=== PATIENT | female | born 1995 | race Caucasian/White ===

== ENCOUNTER 2017-03-13 23:10 | Observation (INO) | payer SELFPAY ==
[~2017-03-13] VITALS: Ht 157.5 cm; Wt 65.3 kg
[~2017-03-13 23:10] MED LIST: IBUP-2071 PO; PREN1TAB26 PO
[2017-03-14 00:59] VITALS: BP 131/68
== END 2017-03-14 00:35 | disposition home or self-care (01) ==
LOC: 4S 23:12 → INTOOBSV 23:12
PROVIDERS: ADMIT Obstetrics & Gynecology; ATTEND Obstetrics & Gynecology
DX: O26.893 Other specified pregnancy related conditions, third trimester (principal); R10.9 Unspecified abdominal pain; N89.8 Other specified noninflammatory disorders of vagina; O62.9 Abnormality of forces of labor, unspecified; Z3A.37 37 weeks gestation of pregnancy
CPT/HCPCS: 59025; G0378 ×2

== ENCOUNTER 2017-03-23 22:25 | Inpatient (IN) | payer SELFPAY ==
[~2017-03-23] VITALS: Ht 154.9 cm; Wt 64.9 kg
[~2017-03-23 22:25] MED LIST changes: -IBUP-2071 PO
[2017-03-23 22:30] VITALS: BP 123/69
[2017-03-24 00:30] LABS: BASOPHILS % (AUTO) 0.4 % (0.0-2.0); EOSINOPHILS % (AUTO) 1.1 % (1.0-6.0); HEMATOCRIT 26.1 % (36-46); HEMOGLOBIN 8.2 g/dL (12.0-16.0); LYMPHOCYTES # (AUTO) 3.7 K/uL (1.0-4.8); LYMPHOCYTES % (AUTO) 24.7 % (22.0-44.0); MEAN CORPUSCULAR HEMOGLOBIN 20.8 pg (26.0-34.0); MEAN CORPUSCULAR HGB CONC 31.4 G/dL (31.0-37.0); MEAN CORPUSCULAR VOLUME 66 fL (80-100); MONOCYTES # (AUTO) 1.1 K/uL (0.1-1.0); MONOCYTES % (AUTO) 7.2 % (2.0-9.0); NEUTROPHILS % (AUTO) 66.6 % (40.0-70.0); RED BLOOD CELL COUNT(AUTO) 3.93 MIL/uL (4.00-5.20); RED CELL DISTRIBUTION WIDTH 19.1 % (11.5-14.5); WHITE BLOOD COUNT (AUTO) 15.1 K/uL (4.5-11.0)
[2017-03-24] MEDS: RINGERS SOLUTION,LACTATED 1,000 ML IV SCH ×4 (00:54→16:28)
[2017-03-24 00:57] LABS: RBC MORPHOLOGY COMMENT ABNORMAL RBC MORPH
[2017-03-24 01:15] LABS: RUBELLA SCREEN (IGG) IMMUNE (IMMUNE)
[2017-03-24] MEDS ORDERED: METOCLOPRAMIDE HCL 5 MG/ML 2 ML VIAL IVP ONE (01:30)
[2017-03-24] MEDS ORDERED: CITRIC ACID/SODIUM CITRATE 30 ML SOLUTION UDCUP PO ONE (01:30)
[2017-03-24 01:36] LABS: APPEARANCE,URINE CLOUDY (CLEAR); GLUCOSE, URINE (UA) NEGATIVE (NEGATIVE); KETONES,URINE NEGATIVE (NEGATIVE); LEUKOCYTE ESTERASE ,URINE LARGE (NEGATIVE); OCCULT BLOOD,URINE NEGATIVE (NEGATIVE); PH,URINE 6.5 (5.0-8.0); PROTEIN,URINE NEGATIVE (NEGATIVE)
[2017-03-24 01:46] LABS: RBC,URINE 0-2 /HPF (0-2); SQUAMOUS EPITHELIAL CELL,UR Moderate /LPF (None Seen)
[2017-03-24] MEDS ORDERED: GUM MASTIC/STORAX/MSAL/ALCOHOL LIQUID 0.67 ML VIAL TP ONE (01:58)
[2017-03-24] MEDS ORDERED: IRON18TA PO (03:00)
[2017-03-24] MEDS ORDERED: MEASLES/MUMPS/RUBELLA VACCINE, LIVE 0.5 ML/VIAL SQ ONE (07:30)
[2017-03-24] MEDS ORDERED: LIDOCAINE HCL/PF 1% 30 ML VIAL INJ PRN (07:30)
[2017-03-24] MEDS ORDERED: NALBUPHINE HCL 10 MG/ML VIAL IVP PRN (07:45)
[2017-03-24] MEDS ORDERED: ONDANSETRON HCL 4 MG/2 ML VIAL IVP PRN ×2 (07:45)
[2017-03-24] MEDS ORDERED: PROMETHAZINE HCL 12.5 MG in SODIUM CHLORIDE 0.9% 50 ML IV PRN (07:45)
[2017-03-24] MEDS ORDERED: NALOXONE HCL 0.4 MG/ML VIAL IVP PRN (07:45)
[2017-03-24] MEDS ORDERED: FentaNYL CITRATE-PF 100 MCG/2 ML VIAL IVP PRN ×2 (07:45)
[2017-03-24] MEDS ORDERED: MEPERIDINE-PF 25 MG/ML SYRINGE IVP PRN (07:45)
[2017-03-24] MEDS ORDERED: DiphenhydrAMINE HCL 50 MG/ML VIAL IVP PRN ×2 (07:45)
[2017-03-24] MEDS ORDERED: RINGERS SOLUTION,LACTATED 1,000 ML IV ONE (08:55)
[2017-03-24] MEDS: MAGNESIUM HYDROXIDE SUSPENSION 30 ML UDCUP PO SCH (09:00)
[2017-03-24] MEDS: SENNA/DOCUSATE SODIUM 187-50 MG TABLET PO SCH ×2 (09:00→21:16)
[2017-03-24] MEDS: NALBUPHINE HCL 10 MG/ML VIAL IVP SCH ×3 (09:38→21:11)
[2017-03-24] MEDS ORDERED: LANOLIN 7 GM OINTMENT TP PRN (10:00)
[2017-03-24] MEDS ORDERED: OXYTOCIN 10 UNITS/ML VIAL IM ONE (12:00)
[2017-03-24] MEDS ORDERED: MORPHINE SULFATE/PF 0.5 MG/ML 10 ML AMP IVP ONE (12:00)
[2017-03-24] MEDS ORDERED: FentaNYL CITRATE-PF 100 MCG/2 ML VIAL IVP ONE (12:00)
[2017-03-24] MEDS: FentaNYL CITRATE-PF 100 MCG/2 ML VIAL IVP PRN ×2 (14:01→22:48)
[2017-03-25] MEDS: IBUPROFEN 800 MG TABLET PO PRN ×3 (00:27→17:48)
[2017-03-25] MEDS: NALBUPHINE HCL 10 MG/ML VIAL IVP SCH (03:00)
[2017-03-25 04:52] LABS: BASOPHILS % (AUTO) 0.3 % (0.0-2.0); EOSINOPHILS % (AUTO) 0.1 % (1.0-6.0); HEMATOCRIT 23.3 % (36-46); HEMOGLOBIN 7.1 g/dL (12.0-16.0); LYMPHOCYTES % (AUTO) 15.2 % (22.0-44.0); MEAN CORPUSCULAR HEMOGLOBIN 20.4 pg (26.0-34.0); MEAN CORPUSCULAR HGB CONC 30.5 G/dL (31.0-37.0); MEAN CORPUSCULAR VOLUME 67 fL (80-100); MONOCYTES # (AUTO) 1.4 K/uL (0.1-1.0); NEUTROPHILS # (AUTO) 15.4 K/uL (1.8-7.7); NEUTROPHILS % (AUTO) 77.4 % (40.0-70.0); RED BLOOD CELL COUNT(AUTO) 3.49 MIL/uL (4.00-5.20); RED CELL DISTRIBUTION WIDTH 18.5 % (11.5-14.5); WHITE BLOOD COUNT (AUTO) 19.9 K/uL (4.5-11.0)
[2017-03-25] MEDS: OxyCODONE HCL/ACETAMINOPHEN 5-325 MG TABLET PO PRN ×4 (05:53→21:29)
[2017-03-25 07:12] LABS: RBC MORPHOLOGY COMMENT ABNORMAL RBC MORPH
[2017-03-25] MEDS: MAGNESIUM HYDROXIDE SUSPENSION 30 ML UDCUP PO SCH ×2 (09:00→20:21)
[2017-03-25] MEDS: SENNA/DOCUSATE SODIUM 187-50 MG TABLET PO SCH ×2 (09:00→20:21)
[2017-03-26] MEDS: IBUPROFEN 800 MG TABLET PO PRN ×4 (00:29→17:58)
[2017-03-26] MEDS: OxyCODONE HCL/ACETAMINOPHEN 5-325 MG TABLET PO PRN ×4 (05:20→20:58)
[2017-03-26] MEDS: SENNA/DOCUSATE SODIUM 187-50 MG TABLET PO SCH ×2 (08:46→20:57)
[2017-03-26] MEDS: MAGNESIUM HYDROXIDE SUSPENSION 30 ML UDCUP PO SCH ×2 (08:46→20:57)
[2017-03-26] MEDS: FERROUS SULFATE 325 MG EC TABLET PO SCH (18:08)
[2017-03-27] MEDS: IBUPROFEN 800 MG TABLET PO PRN (06:23)
[2017-03-27 06:58] LABS: BASOPHILS # (AUTO) 0.09 K/uL (0.00-0.20); BASOPHILS % (AUTO) 0.6 % (0.0-2.0); EOSINOPHILS # (AUTO) 0.37 K/uL (0.00-0.70); EOSINOPHILS % (AUTO) 2.72 % (1.0-6.0); HEMATOCRIT 22.2 % (36-46); LYMPHOCYTES # (AUTO) 2.9 K/uL (1.0-4.8); LYMPHOCYTES % (AUTO) 21.2 % (22.0-44.0); MEAN CORPUSCULAR HEMOGLOBIN 20.9 pg (26.0-34.0); MEAN CORPUSCULAR HGB CONC 30.3 G/dL (31.0-37.0); MEAN CORPUSCULAR VOLUME 69 fL (80-100); MONOCYTES # (AUTO) 0.8 K/uL (0.1-1.0); MONOCYTES % (AUTO) 6.1 % (2.0-9.0); NEUTROPHILS # (AUTO) 9.4 K/uL (1.8-7.7); NEUTROPHILS % (AUTO) 69.4 % (40.0-70.0); RED BLOOD CELL COUNT(AUTO) 3.22 MIL/uL (4.00-5.20); RED CELL DISTRIBUTION WIDTH 18.6 % (11.5-14.5); WHITE BLOOD COUNT (AUTO) 13.5 K/uL (4.5-11.0)
[2017-03-27 07:49] LABS: HEMOGLOBIN 6.7 g/dL (12.0-16.0)
[2017-03-27] MEDS: FERROUS SULFATE 325 MG EC TABLET PO SCH (08:13)
[2017-03-27] MEDS: OxyCODONE HCL/ACETAMINOPHEN 5-325 MG TABLET PO PRN (08:14)
[2017-03-27] MEDS: MAGNESIUM HYDROXIDE SUSPENSION 30 ML UDCUP PO SCH (08:56)
[2017-03-27 10:12] LABS: RBC MORPHOLOGY COMMENT ABNORMAL RBC MORPH
[2017-03-27] MEDS ORDERED: PERCT PO (10:31)
[2017-03-27] MEDS ORDERED: IBUP-2070 PO (10:33)
[2017-03-27] MEDS ORDERED: DSS100 PO (10:34)
[2017-03-27] MEDS ORDERED: FERR-89 PO (10:35)
[2017-03-27] MEDS ORDERED: INFLUENZA VIRUS VACCINE QVS 2017-18 (3YR+)/PF 60 MCG/0.5 ML SYRINGE IM ONE (12:00)
== END 2017-03-27 12:00 | disposition home or self-care (01) | DRG 766 ==
LOC: OBSVTOIN 22:25 → 4S 22:25
PROVIDERS: ADMIT Obstetrics & Gynecology; ATTEND Obstetrics & Gynecology
PROC: 10D00Z1 Extraction of Products of Conception, Low, Open Approach (ICD-10-PCS; principal; 2017-03-24)
DX: O34.211 Maternal care for low transverse scar from previous cesarean delivery (principal); Z37.0 Single live birth; Z3A.39 39 weeks gestation of pregnancy
CPT/HCPCS: 76805; 80307; 86592; 86762; 86850; 86900; 86901; 86920; 87081; 87086; 87340; J0690; J2274; J2300; J2405; J2590; J2765; J3010; J7120

== ENCOUNTER 2019-12-13 12:44 | Emergency (ER) | payer MEDICAID ==
[~2019-12-13] VITALS: Ht 154.9 cm; Wt 56.8 kg
[~2019-12-13 12:44] MED LIST changes: +DSS100 PO; +FERR-89 PO; +IBUP-2070 PO; +PERCT PO
[2019-12-13 15:12] LABS: APPEARANCE,URINE CLOUDY (CLEAR); BILIRUBIN,URINE NEGATIVE (NEGATIVE); GLUCOSE, URINE (UA) NEGATIVE (NEGATIVE); KETONES,URINE TRACE mg/dL (NEGATIVE); LEUKOCYTE ESTERASE ,URINE MODERATE (NEGATIVE); NITRATE,URINE NEGATIVE (NEGATIVE); OCCULT BLOOD,URINE LARGE (NEGATIVE); PROTEIN,URINE SEE CONFIRM (NEGATIVE)
[2019-12-13] MEDS ORDERED: IBUPROFEN 800 MG TABLET PO ONE (15:15)
[2019-12-13] MEDS ORDERED: IBUPROFEN 600 MG TABLET PO ONE (15:15)
[2019-12-13 15:28] LABS: BASOPHILS % (AUTO) 1.1 % (0.0-2.0); EOSINOPHILS % (AUTO) 0.6 % (1.0-6.0); HEMATOCRIT 31.2 % (36-46); HEMOGLOBIN 9.6 g/dL (12.0-16.0); LYMPHOCYTES # (AUTO) 1.6 K/uL (1.0-4.8); LYMPHOCYTES % (AUTO) 31.1 % (22.0-44.0); MEAN CORPUSCULAR HEMOGLOBIN 19.2 pg (26.0-34.0); MEAN CORPUSCULAR HGB CONC 30.7 G/dL (31.0-37.0); MEAN CORPUSCULAR VOLUME 63 fL (80-100); MONOCYTES # (AUTO) 0.4 K/uL (0.1-1.0); MONOCYTES % (AUTO) 8.6 % (2.0-9.0); NEUTROPHILS % (AUTO) 58.6 % (40.0-70.0); PLATELET COUNT (AUTO) 322 K/uL (150-450); RED BLOOD CELL COUNT(AUTO) 4.98 MIL/uL (4.00-5.20); RED CELL DISTRIBUTION WIDTH 18.8 % (11.5-14.5)
[2019-12-13 15:33] LABS: SULFOSALICYLIC ACID,URINE 4+ (Negative)
[2019-12-13 15:35] LABS: RBC,URINE Full Field /HPF (0-2)
[2019-12-13 15:37] LABS: BACTERIA,URINE Few /HPF (None Seen); SQUAMOUS EPITHELIAL CELL,UR Moderate /LPF (None Seen)
[2019-12-13 15:47] LABS: ANION GAP 10 mmol/L (8-16); CALCIUM, TOTAL 8.9 mg/dL (8.8-10.5); CARBON DIOXIDE 25 mmol/L (22-29); CHLORIDE 103 mmol/L (98-107); CREATININE 0.69 mg/dL (0.60-1.30); GLOMERULAR FILTR. RATE CALC > 60 mL/min (>60); GLUCOSE,RANDOM 96 mg/dL (70-110); SODIUM SERUM 138 mmol/L (136-145); UREA NITROGEN, BLOOD 8 mg/dL (7-18)
[2019-12-13 16:00] LABS: ALANINE AMINOTRANSFERASE 24 U/L (12-78); ALBUMIN 4.4 g/dL (3.4-5.0); ALKALINE PHOSPHATASE 63 U/L (46-116); ASPARTATE AMINOTRANSFERASE 13 U/L (15-37); BILIRUBIN,TOTAL 0.3 mg/dL (0.1-1.0); HCG,QUANTITATIVE < 1 mIU/mL (0-6); LIPASE 81 U/L (73-393); TOTAL PROTEIN, SERUM 8.5 g/dL (6.4-8.2)
[2019-12-13 18:22] VITALS: BP 118/78
== END 2019-12-13 18:34 | disposition home or self-care (01) ==
LOC: EMS 12:47
DX: N92.1 Excessive and frequent menstruation with irregular cycle (principal)
CPT/HCPCS: 76830; 76856; 86850; 86900; 86901; 87086; 87491; 87591